=== PATIENT | male | born 1955 | race African-American/Black ===

== ENCOUNTER 2016-09-24 14:07 | Emergency (ER) | payer OTHER ==
[~2016-09-24] VITALS: Ht 172.7 cm; Wt 77.1 kg
[~2016-09-24 14:07] MED LIST: AUGMENTIN 875-1 EAC1 ORAL; CLINDAMYCIN HC300 MG ORAL; CYCLOBENZAPRINE10 MG ORAL; DOXYCYCLINE MO100 MG ORAL; IBUPROFEN600 MG ORAL; KEFLEX500 MG ORAL; NORCO 5-325 TA1 EACH ORAL; PRILOSEC20 MG ORAL; TRAMADOL HCL50 MG ORAL; ZANTAC150 MG ORAL
[2016-09-24] MEDS ORDERED: TdaP Vaccine 0.5ml Syr IM ONE (14:30)
--- NOTE | 2016-09-24 14:35 | Emergency Room Report ---
History of Present Illness General Chief Complaint: Laceration Source: Patient Present Illness HPI 61-year-old male presents emergency department complaining of puncture wound by unknown object while taking out the trash bag this afternoon. Patient reports some mild bleeding initially which has subsided at this time. Patient does not know when his last tetanus vaccination was. Patient denies history of immunocompromise or past medical history. PT states localized 4/10 pain. No aggravating or relieving factors. Denies numbness tingling or loss of sensation or gross motor movements of the extremities, incontinence of bowel or bladder. Denies CP, Palpitations, LOC, AMS, dizziness, Changes in Vision, Sensation, paresthesias, or a sudden severe headache. Allergies: Coded Allergies: No Known Allergies (Unverified , 11/12/13) Patient History Past Medical History: see triage record Past Surgical History: none Pertinent Family History: none Reviewed Nursing Documentation: PMH: Agreed, PSxH: Agreed Nursing Documentation-PMH Past Medical History: No Stated History Hx Hypertension: Yes Review of Systems All Other Systems: negative except mentioned in HPI Physical Exam Vital Signs Date Time Temp Pulse Resp B/P Pulse Ox O2 Delivery O2 Flow Rate FiO2 09/24/16 14:16 98.4 85 16 150/105 95 Room Air Sp02 EP Interpretation: reviewed, abnormal - BP is elevated General Appearance: no apparent distress, alert, GCS 15, non-toxic Head: normocephalic, atraumatic Eyes: bilateral eye PERRL, bilateral eye normal inspection ENT: hearing grossly normal, normal pharynx, no angioedema, normal voice Neck: full range of motion, supple/symm/no masses Respiratory: chest non-tender, lungs clear, normal breath sounds, speaking full sentences Cardiovascular #1: regular rate, rhythm, no edema, normal capillary refill Cardiovascular #2: 2+ radial (R), 2+ radial (L) Musculoskeletal: back normal, gait/station normal, normal range of motion, tender Neurologic: alert, oriented x3, responsive, motor strength/tone normal, sensory intact, speech normal Psychiatric: judgement/insight normal, memory normal, mood/affect normal Skin: normal color, no rash, warm/dry, well hydrated, laceration - 0.5 cm laceration and puncture wound of the left forearm, no erythema, bleeding is controlled at thist talia. Medical Decision Making PA Attestation Dr. Garland is my supervising Physician whom patient management has been discussed with. ER Course 61-year-old male presents emergency department complaining of puncture wound by unknown object while taking out the trash bag this afternoon. Patient reports some mild bleeding initially which has subsided at this time. Patient does not know when his last tetanus vaccination was. Patient denies history of immunocompromise or past medical history. PT states localized 4/10 pain. No aggravating or relieving factors. Ddx considered but are not limited to laceration, tendon injury, cellulitis, amputation, FB Vital signs: are WNL, pt. is afebrile H&PE are most consistent with: puncture wound and laceration approx 0.5 cm in length ORDERS: none required at this time, the diagnosis is clinical ED INTERVENTIONS: -Tetanus vaccine was administered as pt. vaccination status was unknown. - The wound was copiously irrigated with normal saline, and explored for foreign body for which no FB was found. -Bacitracin and sterile dressing is applied. Discussed with patient: That we make every effort to approximate the laceration as best as we can so that scarring will be as cosmetically pleasing as possible with our limited cosmetic skill set in the Emergency dept. Regardless of our best efforts there will be scarring after laceration repair. The extent of scarring is unknown at this time. DISCHARGE: At this time pt. is stable for d/c to home. Will provide printed patient care instructions, and any necessary prescriptions. Care plan and follow up instructions have been discussed with the patient prior to discharge. Last Vital Signs Date Time Temp Pulse Resp B/P Pulse Ox O2 Delivery O2 Flow Rate FiO2 09/24/16 14:16 98.4 85 16 150/105 95 Room Air Disposition: HOME, SELF-CARE Condition: Stable Scripts Cephalexin* (KEFLEX*) 500 Mg Capsule 500 MG ORAL EVERY 12 HOURS for 7 Days, #14 CAP 0 Refills Prov: Luna Manjarrez 09/24/16 Bacitracin/Polymyxin B Sulfate (BACITRACIN-POLYMYXIN OINTMENT) 28.35 Gm Oint...g. 1 APPLIC TP BID, #28 GM Prov: Luna Manjarrez 09/24/16 Patient Instructions: Laceration Care, Adult, Nonsutured Laceration Care Additional Instructions: Take medications as directed. Follow up with PCP in 3-5 days Return sooner to ED if new symptoms occur, or current symptoms become worse. - Please note that this Emergency Department Report was dictated using [employer] education specialist technology software, occasionally this can lead to erroneous entry secondary to interpretation by the dictation equipment. Luna Manjarrez Sep 24, 2016 14:35
[2016-09-24] MEDS ORDERED: Bacitracin Oint UD TOPIC ONE ×2 (14:47→15:00)
[2016-09-24] MEDS ORDERED: BACITRACIN-P28.35 GM TP (14:53)
[2016-09-24] MEDS ORDERED: CEPHALEXIN500 MG ORAL (14:53)
[2016-09-24 15:08] VITALS: BP 144/98
== END 2016-09-24 15:08 | disposition home or self-care (01) ==
LOC: EMR 14:30
DX: S51.812A Laceration without foreign body of left forearm, initial encounter (principal); W45.8XXA Other foreign body or object entering through skin, initial encounter; Y92.019 Unspecified place in single-family (private) house as the place of occurrence of the external cause; Z23 Encounter for immunization; I10 Essential (primary) hypertension
CPT/HCPCS: 90471; 90715; 99284

== ENCOUNTER 2017-05-21 07:42 | Emergency (ER) | payer MEDICAID, OTHER ==
[~2017-05-21] VITALS: Ht 172.7 cm; Wt 77.1 kg
[~2017-05-21 07:42] MED LIST changes: +BACITRACIN-P28.35 GM TP; +CEPHALEXIN500 MG ORAL
[2017-05-21] MEDS ORDERED: NKM (07:50)
[2017-05-21] MEDS ORDERED: Norco 10mg/325mg tab ORAL ONE (08:00)
--- NOTE | 2017-05-21 08:32 | Emergency Room Report ---
History of Present Illness General Chief Complaint: Pain Source: Patient Present Illness HPI Patient presents with complaints of pain to the right knee He reports that he went to sleep without any discomfort however upon awaking this morning he had extreme pain to the lower part of the patella Any attempts of standing was causing pain Describes the pain is 7/10 sharp and pressure-like worse with ambulation Denies any fevers or chills denies any chest pain or shortness of breath denies any calf pain Denies any trauma Denies any pain like this in the past Allergies: Coded Allergies: No Known Allergies (Unverified , 11/12/13) Patient History Past Medical History: see triage record Pertinent Family History: none Reviewed Nursing Documentation: PMH: Agreed, PSxH: Agreed Nursing Documentation-PMH Past Medical History: No Stated History Hx Hypertension: Yes Review of Systems All Other Systems: negative except mentioned in HPI Physical Exam Vital Signs Date Time Temp Pulse Resp B/P (MAP) Pulse Ox O2 Delivery O2 Flow Rate FiO2 05/21/17 07:46 97.5 93 24 189/96 100 Room Air Sp02 EP Interpretation: reviewed, normal General Appearance: mild distress - Appears in acute pain Head: normocephalic, atraumatic Eyes: bilateral eye PERRL, bilateral eye EOMI ENT: normal pharynx, no angioedema Neck: full range of motion, supple, thyroid normal Respiratory: chest non-tender, lungs clear Cardiovascular #1: normal peripheral pulses, regular rate, rhythm Gastrointestinal: non tender, soft Musculoskeletal: other - Patient has some suprapatellar effusion noted clinically, otherwise the patella is freely mobile, calf is nontender Neurologic: normal inspection, alert, oriented x3, responsive Skin: other - as above Lymphatic: no adenopathy Procedures Splinting Splinting : Consent: Verbal Location: right knee Pre-Made Type: knee immobilizer Pre-Proc Neuro Vasc Exam: normal Post-Proc Neuro Vasc Exam: normal Patient Tolerated: Well Complications: None Joint Reduction Joint Reduction : Consent: Verbal Joint Reduction Site: knee (R) Procedural Sedation: No Reduction Attempts: One Pre-Procedure NV Exam: Yes Post-Procedure NV Exam: Yes Patient Tolerated: Well Complications: None Medical Decision Making Diagnostic Impression: Primary Impression: Patellar dislocation ER Course Given the history exam patient had imaging obtained the patella appears to be somewhat high riding on the x-ray Consideration for dislocation is also made On reevaluation the patella remained mobile however with Traction towards the foot there appeared to be relief and improved movement Racing the likelihood of dislocation with reduction Patient has some is able to bend the knee on reevaluation Knee immobilizer was placed And the patient will require close followup Other X-Ray Diagnostic Results Other X-Ray Diagnostic Results : X-Ray ordered: right knee # of Views/Limited Vs Complete: 3 View Indication: Pain EP Interpretation: Yes Interpretation: no soft tissue swelling, no fractures, other - The patella appears to be somewhat high riding small effusion is appreciated, no obvious fracture, Impression: Other - high riding patella, possible dislocation Electronically Signed by: Raul Bedolla, Last Vital Signs Date Time Temp Pulse Resp B/P (MAP) Pulse Ox O2 Delivery O2 Flow Rate FiO2 05/21/17 07:46 97.5 93 24 189/96 100 Room Air Status: improved Disposition: HOME, SELF-CARE Condition: Improved Scripts Hydrocodone Bit/Acetaminophen 5-325* (NORCO 5-325*) 1 Each Tablet 1 TAB ORAL Q6H Y for For Pain, #10 TAB 0 Refills Prov: RAUL BEDOLLA D.O. 05/21/17 Ibuprofen* (MOTRIN*) 600 Mg Tablet 600 MG ORAL Q8H Y for For Pain, #20 TAB 0 Refills Prov: RAUL BEDOLLA D.O. 05/21/17 Additional Instructions: Patient is provided with the discharge instructions notified to follow up with primary doctor in the next 2-3 days otherwise return to the er with any worsening symptoms. Please note that this report is being documented using [employer] technology. This can lead to erroneous entry secondary to incorrect interpretation by the dictating instrument. RAUL BEDOLLA D.O. May 21, 2017 08:32
[2017-05-21] MEDS ORDERED: NORCO 5-325 TA1 EACH ORAL (08:42)
[2017-05-21] MEDS ORDERED: IBUPROFEN600 MG ORAL (08:42)
[2017-05-21 08:54] VITALS: BP 156/90
--- NOTE | 2017-05-21 09:33 | Diagnostic Imaging Report ---
Indication: Pain Technique: XRAY Knee 3v R Comparison: None Findings: There is no acute fracture or dislocation. Mild degenerative changes manifested by medial compartment joint space narrowing. Insall-Salvati ratio of approximately 1.06, within normal limits. No knee joint effusion. No radiopaque foreign body seen. Impression: No acute fracture or dislocation.
== END 2017-05-21 08:54 | disposition home or self-care (01) ==
LOC: EMR 08:15
DX: S83.004A Unspecified dislocation of right patella, initial encounter (principal); X58.XXXA Exposure to other specified factors, initial encounter; Y93.84 Activity, sleeping; Y92.9 Unspecified place or not applicable; I10 Essential (primary) hypertension
CPT/HCPCS: 27560; 73562; 99284; Z7502

== ENCOUNTER 2017-11-20 19:00 | Emergency (ER) | payer MEDICAID ==
[~2017-11-20] VITALS: Ht 180.3 cm; Wt 72.6 kg
[~2017-11-20 19:00] MED LIST changes: +NKM
[2017-11-20 19:14] VITALS: BP 151/99
[2017-11-20] MEDS ORDERED: DEBROX15 M1 BOTH EARS (19:29)
--- NOTE | 2017-11-20 19:29 | Emergency Room Report ---
History of Present Illness General Chief Complaint: Earache Source: Patient Present Illness HPI 62-year-old male patient presents to ER complaining of cotton in left ear. Reports was using a Q-tip when the cotton became dislodged in his ear. Reports pain in right ear. Denies other symptoms. Denies chest pain, SOB, abdominal pain. Allergies: Coded Allergies: No Known Allergies (Unverified , 11/12/13) Patient History Past Medical History: see triage record Reviewed Nursing Documentation: PMH: Agreed; PSxH: Agreed Nursing Documentation-PMH Past Medical History: No Stated History Hx Hypertension: Yes Review of Systems All Other Systems: negative except mentioned in HPI Physical Exam Vital Signs Date Time Temp Pulse Resp B/P (MAP) Pulse Ox O2 Delivery O2 Flow Rate FiO2 11/20/17 19:07 97.7 64 18 151/99 96 Room Air 97.7 Sp02 EP Interpretation: reviewed, normal General Appearance: well appearing, no apparent distress, alert, GCS 15, non- toxic Head: normocephalic, atraumatic Eyes: bilateral eye normal inspection, bilateral eye PERRL ENT: hearing grossly normal, normal pharynx, no angioedema, normal voice, TMs + canals normal, uvula midline, moist mucus membranes, other - FB in left ear Neck: full range of motion Respiratory: lungs clear, normal breath sounds, no rhonchi, no respiratory distress, no accessory muscle use, no wheezing, speaking full sentences Cardiovascular #1: regular rate, rhythm, no edema Musculoskeletal: back normal, digits/nails normal, gait/station normal, normal range of motion, non-tender Neurologic: alert, oriented x3, responsive, motor strength/tone normal, sensory intact Psychiatric: mood/affect normal Skin: no rash Medical Decision Making PA Attestation Dr. Jerez is my supervising Physician whom patient management has been discussed with. Diagnostic Impression: Primary Impression: Ear foreign body ER Course Pt. presents to the ED c/o cotton in the left ear. Ddx considered but are not limited to otitis media, otitis externa, ear foreign body, perforated TM. Vital signs: are WNL, pt. is afebrile ER course: Physical exam shows cotton in left ear. Removed cotton from ear using alligator forceps. Patient's TM nonerythematous, no perforated TM, light reflex intact, no cerumen in ear canal or erythema or edema of the ear canal bilaterally. Informed patient not to use Q-tips except on outer ear surface. Will provide patient with alternative treatment for removing earwax. Informed patient he does not need to use treatment at this time because ears have cerumen in them. Follow-up with ENT. DISCHARGE: Rx provided for Debrox At this time pt is stable for d/c to home. Patient is resting comfortably, in no acute distress, nontoxic appearing, talking without difficulty. Patient to take medications as instructed Will provide with patient care instructions and any necessary prescriptions. Care plan and follow-up instructions provided. Patient instructed to follow-up with primary care provider in 3 - 5 days. Patient questions asked and answered. Patient reports understanding and agreement to treatment plan. ER precautions given. Patient instructed to return to ER immediately for any new or worsening of symptoms including but not limited to increasing SOB, persistent fever, chest pain, intractable vomiting. - Please note that this Emergency Department Report was dictated using [employer] assistant technology software, occasionally this can lead to erroneous entry secondary to interpretation by the dictation equipment. Last Vital Signs Date Time Temp Pulse Resp B/P (MAP) Pulse Ox O2 Delivery O2 Flow Rate FiO2 11/20/17 19:14 97.7 64 18 151/99 96 Room Air 97.7 Disposition: HOME, SELF-CARE Condition: Stable Scripts Carbamide Peroxide (DEBROX) 15 Ml Drops 5 DROP BOTH EARS TWICE A DAY for 4 Days, ML 0 Refills Prov: Lawrence Richter 11/20/17 Patient Instructions: Ear Foreign Body, [id number] Additional Instructions: Followup with primary care provider in 3 -5 days. Discuss referral to ENT. Do not use Q-tips. Take medications as directed. Patient questions asked and answered. ER precautions given, patient instructed to return to ER immediately for any new or worsening of symptoms. Lawrence Richter Nov 20, 2017 19:29
[2017-11-20 19:32] VITALS: BP 151/99
== END 2017-11-20 19:32 | disposition home or self-care (01) ==
LOC: EMR 19:27
DX: T16.2XXA Foreign body in left ear, initial encounter (principal); X58.XXXA Exposure to other specified factors, initial encounter; Y92.9 Unspecified place or not applicable; I10 Essential (primary) hypertension
CPT/HCPCS: 99283

== ENCOUNTER 2017-12-12 08:27 | Emergency (ER) | payer MEDICAID ==
[~2017-12-12] VITALS: Ht 172.7 cm; Wt 72.6 kg
[~2017-12-12 08:27] MED LIST changes: +DEBROX15 M1 BOTH EARS
[2017-12-12 08:47] VITALS: BP 150/90
[2017-12-12] MEDS ORDERED: IBUPROFEN600 MG ORAL (09:17)
[2017-12-12] MEDS ORDERED: AMOXICILLIN500 MG ORAL (09:17)
[2017-12-12 09:23] VITALS: BP 145/87
--- NOTE | 2017-12-12 09:24 | Emergency Room Report ---
History of Present Illness General Chief Complaint: General Complaint Source: Patient Present Illness HPI Patient present with complaints of swelling to the left lower jaw area Patient noticed a swelling 2 days ago Denies any pain Denies any difficulty opening or closing his mouth Denies any fevers or chills denies any neck pain or photophobia As the area in question appears swollen compared to the right side he was concerning came to the ER Allergies: Coded Allergies: No Known Allergies (Unverified , 11/12/13) Patient History Past Medical History: see triage record Pertinent Family History: none Reviewed Nursing Documentation: PMH: Agreed; PSxH: Agreed Nursing Documentation-PMH Past Medical History: No Stated History Hx Hypertension: Yes Review of Systems All Other Systems: negative except mentioned in HPI Physical Exam Vital Signs Date Time Temp Pulse Resp B/P (MAP) Pulse Ox O2 Delivery O2 Flow Rate FiO2 12/12/17 08:43 97.6 78 16 150/90 98 Room Air 97.5 Sp02 EP Interpretation: reviewed, normal General Appearance: well appearing, no apparent distress Head: normocephalic, atraumatic Eyes: bilateral eye PERRL, bilateral eye EOMI ENT: normal pharynx, other - There is some swelling just at the angle of the jaw on the left side, consistent with the parotid gland, tympanic membrane is clear oral airway is clear, Neck: supple Respiratory: lungs clear, normal breath sounds Cardiovascular #1: regular rate, rhythm, no edema Gastrointestinal: non tender, soft, no mass Musculoskeletal: normal inspection - No trismus Neurologic: alert, oriented x3 Skin: other - As above Lymphatic: no adenopathy Medical Decision Making Diagnostic Impression: Primary Impression: parotiditis ER Course Patient's clinical exam is consistent with the parotid gland being swollen Patient does not appear septic or toxic is afebrile There are no signs of trismus and patient will have initial conservative outpatient trial Last Vital Signs Date Time Temp Pulse Resp B/P (MAP) Pulse Ox O2 Delivery O2 Flow Rate FiO2 12/12/17 08:47 97.5 16 150/90 98 Room Air 97.5 12/12/17 08:43 78 Status: unchanged Disposition: HOME, SELF-CARE Condition: Stable Scripts Ibuprofen* (MOTRIN*) 600 Mg Tablet 600 MG ORAL Q8H PRN for For Pain, #20 TAB 0 Refills Prov: Raul Taylor DO 12/12/17 Amoxicillin* (AMOXIL*) 500 Mg Capsule 500 MG ORAL THREE TIMES A DAY, #21 CAP Prov: Raul Taylor DO 12/12/17 Referrals: NON PHYSICIAN (PCP) Patient Instructions: Parotitis, [id number] Additional Instructions: Patient is provided with the discharge instructions notified to follow up with primary doctor in the next 2-3 days otherwise return to the er with any worsening symptoms. Please note that this report is being documented using [employer] technology. This can lead to erroneous entry secondary to incorrect interpretation by the dictating instrument. Raul Taylor DO Dec 12, 2017 09:24
== END 2017-12-12 09:23 | disposition home or self-care (01) ==
LOC: EMR 09:05
DX: K11.20 Sialoadenitis, unspecified (principal); I10 Essential (primary) hypertension
CPT/HCPCS: 99284

== ENCOUNTER 2018-01-21 08:43 | Emergency (ER) | payer MEDICAID ==
[~2018-01-21] VITALS: Ht 170.2 cm; Wt 77.1 kg
[~2018-01-21 08:43] MED LIST changes: +AMOXICILLIN500 MG ORAL
[2018-01-21] MEDS ORDERED: AUGMENTIN 875-1 EAC1 ORAL (10:02)
[2018-01-21] MEDS ORDERED: IBUPROFEN600 MG ORAL (10:02)
[2018-01-21 10:14] VITALS: BP 140/92
[2018-01-21 10:59] VITALS: BP 140/92
--- NOTE | 2018-01-23 01:27 | Emergency Room Report ---
History of Present Illness General Chief Complaint: Skin Rash/Abscess Source: Patient Present Illness HPI Patient presents with complaints of some swelling to the left lower jaw patient was here previously with similar complaint Reports that the swelling had fully resolved Over the past one day he again noticed some minimal swelling denies any chest pain denies any fevers denies any neck pain Denies any dental pain Allergies: Coded Allergies: No Known Allergies (Unverified , 11/12/13) Patient History Past Medical History: see triage record Pertinent Family History: none Reviewed Nursing Documentation: PMH: Agreed; PSxH: Agreed Nursing Documentation-PMH Past Medical History: No History, Except For Hx Hypertension: Yes Review of Systems All Other Systems: negative except mentioned in HPI Physical Exam Vital Signs Date Time Temp Pulse Resp B/P (MAP) Pulse Ox O2 Delivery O2 Flow Rate FiO2 01/21/18 08:53 98.2 91 18 144/96 98 Room Air 98.2 Sp02 EP Interpretation: reviewed, normal General Appearance: well appearing, no apparent distress Head: normocephalic, atraumatic Eyes: bilateral eye PERRL, bilateral eye EOMI ENT: hearing grossly normal, normal pharynx, TMs + canals normal, uvula midline Neck: full range of motion, supple, no meningismus, no bony tend, other - There was a small area of increased palpable mass left angle of the mandible Respiratory: lungs clear, normal breath sounds, no rhonchi, no respiratory distress, no retraction, no accessory muscle use Cardiovascular #1: normal peripheral pulses, regular rate, rhythm, no edema, no gallop, no JVD, no murmur Gastrointestinal: normal bowel sounds, non tender, soft, no mass, no organomegaly, non-distended, no guarding, no hernia, no pulsatile mass, no rebound Genitourinary: no CVA tenderness Musculoskeletal: normal inspection Neurologic: oriented x3, responsive, broadcast field supervisor III-XII nml as tested, motor strength/ tone normal, sensory intact Psychiatric: mood/affect normal Skin: other - As above Lymphatic: normal inspection, no adenopathy Medical Decision Making Diagnostic Impression: Primary Impression: parotitis ER Course Patient's parotid gland appears to be somewhat irritated Patient is afebrile with the lack of any rash Also appears to have results from his previous presentation He is encouraged to follow up with his primary physician for further outpatient testing at this time however patient placed on antibiotics conservatively and requires close follow-up Last Vital Signs Date Time Temp Pulse Resp B/P (MAP) Pulse Ox O2 Delivery O2 Flow Rate FiO2 01/21/18 10:59 98.2 82 18 140/92 98 Room Air 98.2 Status: unchanged Disposition: HOME, SELF-CARE Condition: Improved Scripts Ibuprofen* (MOTRIN*) 600 Mg Tablet 600 MG ORAL Q8H PRN for For Pain, #20 TAB 0 Refills Prov: Raul Taylor DO 01/21/18 Amoxicillin/Potassium Clav 875-125* (AUGMENTIN 875-125 TABLET*) 1 Each Tablet 1 TAB ORAL TWICE A DAY, #14 TAB Prov: Raul Taylor DO 01/21/18 Referrals: [facility],REFERRING (PCP) Patient Instructions: Parotitis, [id number] Additional Instructions: The importance of close outpatient follow-up has been explained. As mentioned previously primary physician follow-up with further testing is required. Also possible dental evaluation would be required Raul Taylor DO Jan 23, 2018 01:27
== END 2018-01-21 10:20 | disposition home or self-care (01) ==
LOC: EMR 09:20
DX: K11.20 Sialoadenitis, unspecified (principal)
CPT/HCPCS: 99283